=== PATIENT | male | born 1945 | race Caucasian/White ===

== ENCOUNTER 2017-02-07 15:02 | Outpatient (CLI) | payer MEDICARE | END 2017-02-07 15:03 | disposition home or self-care (01) | LOC: CTENTCT 15:02 | PROVIDERS: ATTEND Otolaryngology Plastic Surgery within the Head & Neck | DX: J32.9 Chronic sinusitis, unspecified (principal) | CPT/HCPCS: 70486 ==

== ENCOUNTER 2017-03-02 09:22 | Day surgery (SDC) | payer MEDICARE ==
[2017-03-01 14:31] VITALS: BMI 35.2
[2017-03-02 09:57] LABS: Hemoglobin 14.6 g/dL (14.0-18.0)
[2017-03-02] MEDS ORDERED: Oxymetazoline HCl 0.05% ( 15 ML ) ONE ×2 (10:02→11:43)
[2017-03-02 10:12] LABS: #Eosinphils 0.1 thou/uL (0.0-0.7); #Lymphocytes 1.9 thou/uL (1.20-3.40); #Monocytes 0.8 thou/uL (0.11-0.59); #Neutrophils 3.3 thou/uL (1.40-6.50); %Basophils 0.4 % (0.0-1.0); %Eosinophils 2.2 % (0.0-10.0); %Lymphocytes 31.3 % (21.0-51.0); %Monocytes 12.8 % (0.0-10.0); %Neutrophils 53.3 % (42.0-75.0); Hemoglobin 14.8 g/dL (14.0-18.0); Mean Corpuscular HGB CONC 32.8 g/dL (32.0-36.0); Mean Corpuscular Hemoglobin 31.1 pg (27.0-31.0); Mean Corpuscular Volume 94.9 fl (80.0-94.0); Mean Platelet Volume 7.7 fL (7.4-10.4); Platelet Count 238 thou/uL (130-400); RBC Distribution Width 11.8 % (11.5-14.5); Red Blood Cell (RBC) Count 4.74 mill/uL (4.70-6.10); White Blood Cell (WBC) Count 6.2 thou/uL (4.8-10.8)
[2017-03-02 10:17] LABS: Anion Gap 13 mmol/L (10-20); BUN (Urea Nitrogen) 15 mg/dL (8.4-25.7); Calc. Creatinine Clearance 94 mL/min (70-130); Calcium 9.8 mg/dL (7.8-10.44); Carbon Dioxide 26 mmol/L (23-31); Chloride 105 mmol/L (98-107); Estimated GFR-MDRD 72; Glucose 112 mg/dL (83-110); Potassium 4.2 mmol/L (3.5-5.1); Sodium 140 mmol/L (136-145)
[2017-03-02] MEDS ORDERED: Fentanyl 100 MCG/2 ML VIAL ONE ×3 (11:41→13:29)
[2017-03-02] MEDS ORDERED: Midazolam HCl 2 mg/2 ml Vial ONE (11:41)
[2017-03-02] MEDS ORDERED: Lidocaine 1% w/Epinephrine 1:200K 30 ML VIAL ONE (11:43)
--- NOTE | 2017-03-02 12:40 | EKG ---
Test Reason : PREOP Blood Pressure : / mmHG Vent. Rate : 078 BPM Atrial Rate : 078 BPM P-R Int : 186 ms QRS Dur : 098 ms QT Int : 386 ms P-R-T Axes : 055 024 047 degrees QTc Int : 440 ms Normal sinus rhythm Normal ECG No previous ECGs available Confirmed by DR. Adarsh SPENCE ([id number]) on 03/02/2017 12:40:27 PM Referred By: PAUL Confirmed By:DR. Adarsh SPENCE
[2017-03-02] MEDS ORDERED: Bacitracin Zinc Ointment 30 gm TUBE ONE (12:41)
[2017-03-02] MEDS ORDERED: Ophthalmic Irrigation Solution 15 ML ONE (12:44)
[2017-03-02] MEDS ORDERED: HYDROcodone/Acetaminophen 5/325 mg Tablet ONE (14:29)
[2017-03-02] MEDS ORDERED: Lidocaine 1% PF 5 ML VIAL ONE (16:41)
[2017-03-02] MEDS ORDERED: Propofol 200 MG/20 ML VIAL ONE (16:41)
[2017-03-02] MEDS ORDERED: Dexamethasone 20 MG/5 ML VIAL ONE (16:41)
[2017-03-02] MEDS ORDERED: Ondansetron HCl/PF 4 MG/2 ML Vial ONE (16:41)
[2017-03-02] MEDS ORDERED: Succinylcholine Chloride 20 MG/ML 10 ml SYRINGE FS ONE (16:41)
[2017-03-02] MEDS ORDERED: PHENYLEPHRINE-NS 100 MCG/ML 10 ML SYRINGE ONE (16:41)
--- NOTE | 2017-03-03 10:14 | OP ---
DATE OF SERVICE: 03/02/2017 PREOPERATIVE DIAGNOSES: 1. Chronic rhinosinusitis. 2. Bilateral nasal polyposis. 3. Allergic fungal sinusitis. 4. Bilateral inferior turbinate hypertrophy. POSTOPERATIVE DIAGNOSES: 1. Chronic rhinosinusitis. 2. Bilateral nasal polyposis. 3. Allergic fungal sinusitis. 4. Bilateral inferior turbinate hypertrophy. PROCEDURES: 1. Bilateral endoscopic sinus surgery, total ethmoidectomies. 2. Bilateral endoscopic sinus surgery, maxillary antrostomies. 3. Bilateral endoscopic sinus surgery, frontal sinusotomy. 4. Bilateral endoscopic sinus surgery, sphenoidotomies. 5. Bilateral endoscopic resection of nasal polyposis and nasal polypectomy. 6. Bilateral inferior turbinate, submucosal resection. 7. Intraoperative landmark image-guided setup CT interpretation and cranial base surgery. SURGEON: Jose Naqvi M.D. ESTIMATED BLOOD LOSS: 50 mL. COMPLICATIONS: None. ANESTHESIA: GETA. PROCEDURE IN DETAIL: The patient was taken to the operating room and placed on the table. General e ndotracheal anesthesia was obtained by the Anesthesia staff. The patient was then placed in the beac h chair position, prepped and draped for standard nasal procedure. Following this, the landmark imag e-guided system was then set up, calibrated and was noted to be within 1 mm of accuracy. Following t his, the 0 degree microdebrider was used to advancing the nasal cavity, removing large nasal polyps t hat had the left nasal cavity 100% obstructed. Following this, remnant of the middle turbinate and i nferior turbinates were then visible for landmark structures, 1% lidocaine with 1:100,000 epinephrine was injected into these structures bilaterally. Following this, began on the right side first, the middle turbinate was gently medialized with a [place] elevator. The uncinate process was identified an d was removed using the straight microdebrider and straight [place] forceps. On the left side, the uncinate process was markedly atrophic and widened secondary to extension of the nasal polyps. Nasa l polyps were removed along with the uncinate process using the microdebrider. The maxillary ostia w as identified bilaterally on the right side, was widened using the straight microdebrider on the left side, was widened using the straight microdebrider and the curved microdebrider was used to remove p olyps from the left maxillary sinus ostia. Large amounts of allergic fungal sinusitis debris was katherine ntified in the left maxillary sinus. Following this, the ethmoidal bulla was identified bilaterally and was removed using the microdebrider. Following this, the ground lamella was identified and was p unctured in the posterior ethmoidal cells. Working from posterior to anterior, the ethmoidal cells w ere opened in a mucosal-sparing technique. On the left side, there were copious amounts of nasal brendan yps and allergic fungal mucin throughout the ethmoidal sinuses. Following this, the sphenoid sinuses were approached staying medial to the middle turbinates where the ostia were identified. Using the landmark image guided system, was then punctured with a blunt ended technique into the sphenoid sinus . Sphenoidotomy was widened medially and inferiorly using the microdebrider. The left sphenoid sinu s was completely full of nasal polyps. Following this, a 45-degree scope and the degree image-guided adenoid blade was then used to further open the frontal sinus ostia and remove debris from the front al sinuses. Following this, the inferior turbinates were then punctured on the anterior inferior asp ect with the submucosal microdebrider and submucosal resection was performed bilaterally. Following this, the nasal cavity was irrigated. MeroPacks were placed within the middle meatus bilaterally. O n the left side, Merocel nonabsorbable packs placed to assist with hemostasis. The patient tolerated the procedure well.
== END 2017-03-02 15:28 | disposition home or self-care (01) ==
LOC: SDC 09:22
PROVIDERS: ATTEND Otolaryngology Plastic Surgery within the Head & Neck
PROC: 09TV8ZZ Resection of Left Ethmoid Sinus, Via Natural or Artificial Opening Endoscopic (ICD-10-PCS; principal; 2017-03-02)
PROC: 09TU8ZZ Resection of Right Ethmoid Sinus, Via Natural or Artificial Opening Endoscopic (ICD-10-PCS; 2017-03-02)
PROC: 099R8ZZ Drainage of Left Maxillary Sinus, Via Natural or Artificial Opening Endoscopic (ICD-10-PCS; 2017-03-02)
PROC: 099Q8ZZ Drainage of Right Maxillary Sinus, Via Natural or Artificial Opening Endoscopic (ICD-10-PCS; 2017-03-02)
PROC: 099T8ZZ Drainage of Left Frontal Sinus, Via Natural or Artificial Opening Endoscopic (ICD-10-PCS; 2017-03-02)
PROC: 099S8ZZ Drainage of Right Frontal Sinus, Via Natural or Artificial Opening Endoscopic (ICD-10-PCS; 2017-03-02)
PROC: 099X8ZZ Drainage of Left Sphenoid Sinus, Via Natural or Artificial Opening Endoscopic (ICD-10-PCS; 2017-03-02)
PROC: 099W8ZZ Drainage of Right Sphenoid Sinus, Via Natural or Artificial Opening Endoscopic (ICD-10-PCS; 2017-03-02)
PROC: 09BK8ZX Excision of Nasal Mucosa and Soft Tissue, Via Natural or Artificial Opening Endoscopic, Diagnostic (ICD-10-PCS; 2017-03-02)
PROC: 09BL8ZZ Excision of Nasal Turbinate, Via Natural or Artificial Opening Endoscopic (ICD-10-PCS; 2017-03-02)
DX: J32.9 Chronic sinusitis, unspecified (principal); J33.9 Nasal polyp, unspecified; J32.0 Chronic maxillary sinusitis; J32.2 Chronic ethmoidal sinusitis; J32.1 Chronic frontal sinusitis; J30.89 Other allergic rhinitis; Z88.0 Allergy status to penicillin
CPT/HCPCS: 36415; 80048; 85014; 85018; 88304; 93005; 93010; 96374; J1100; J2001; J2250; J2405; J2704; J3010

== ENCOUNTER 2022-03-12 14:30 | Observation (INO) | payer MEDICARE, OTHER ==
[2022-03-12 15:27] VITALS: BMI 36.8
[2022-03-16] MEDS ORDERED: Bupivacaine/Epinephrine 0.25% 30 ML VIAL ONE (10:42)
[2022-03-16] MEDS ORDERED: Neomycin-Polymyxin 1 ML AMP ONE (10:42)
[2022-03-16 11:29] LABS: SARS-CoV-2 NAA Rapid Test Not Detected (NotDetected)
[2022-03-16] MEDS ORDERED: Midazolam HCl 2 mg/2 ml Vial ONE (11:56)
[2022-03-16] MEDS ORDERED: Fentanyl 100 MCG/2 ML VIAL ONE ×2 (11:56→14:55)
[2022-03-16] MEDS ORDERED: Bupivacaine PF 0.5% 30 ML VIAL ONE (11:57)
[2022-03-16] MEDS ORDERED: Tranexamic Acid 1,000 MG/10 ML VIAL ONE ×2 (12:13→13:27)
[2022-03-16] MEDS ORDERED: Clindamycin/D5W 900 mg/50 ml Premix Bag ONE (12:13)
[2022-03-16] MEDS ORDERED: Fentanyl 250 MCG/5 ML VIAL ONE (12:25)
[2022-03-16] MEDS ORDERED: Ondansetron PF 4 MG/2 ML Vial IM PRN (12:53)
[2022-03-16] MEDS ORDERED: HYDROcodone/Acetaminophen 10/325 mg Tablet PO PRN ×3 (12:53→13:15)
[2022-03-16] MEDS ORDERED: Zolpidem Tartrate 5 MG TAB PO PRN ×2 (12:53→13:15)
[2022-03-16] MEDS ORDERED: Morphine 4 MG/ML VIAL SLOW IVP PRN (12:53)
[2022-03-16] MEDS ORDERED: Cepastat Lozenges 1 LOZ PO PRN (12:53)
[2022-03-16] MEDS ORDERED: Morphine 2 MG/ML VIAL SLOW IVP PRN (12:53)
[2022-03-16] MEDS ORDERED: PHENYLEPHRINE-NS 100 MCG/ML 10 ML SYRINGE ONE (12:54)
[2022-03-16] MEDS ORDERED: Dexamethasone 20 MG/5 ML VIAL ONE (12:54)
[2022-03-16] MEDS ORDERED: Lidocaine 1% PF 5 ML VIAL ONE (12:54)
[2022-03-16] MEDS ORDERED: Ondansetron PF 4 MG/2 ML Vial ONE (12:54)
[2022-03-16] MEDS ORDERED: PROPOFOL 200 MG/20 ML VIAL ONE (12:54)
[2022-03-16] MEDS ORDERED: Tranexamic Acid 1,000 MG in Sodium Chloride 0.9% 100 ML IVPB SCH (13:00)
[2022-03-16] MEDS ORDERED: Ropivacaine 0.2% 550 ML 550 ML NERVE BLCK SCH (13:15)
[2022-03-16] MEDS ORDERED: Fentanyl 100 MCG/2 ML VIAL IV PRN (13:15)
[2022-03-16] MEDS ORDERED: traMADol HCl 50 MG TAB PO PRN (13:15)
[2022-03-16] MEDS ORDERED: Ondansetron PF 4 MG/2 ML Vial IVP PRN (13:15)
[2022-03-16] MEDS ORDERED: Promethazine HCl 25 MG/ML VIAL IM PRN (13:15)
[2022-03-16] MEDS ORDERED: HYDROmorphone 0.5 MG/0.5 ML SYRINGE ONE ×2 (15:19→15:35)
[2022-03-16] MEDS ORDERED: Chloraseptic Spray 180 ml Bottle PO PRN (15:27)
[2022-03-16] MEDS: Sodium Chloride 0.9% 1,000 ML IV SCH ×2 (16:57→23:13)
[2022-03-16] MEDS: Clindamycin/D5W 900 MG in Premix Bag 1 BAG IVPB SCH ×2 (17:23→23:24)
[2022-03-16] MEDS: Ketorolac Tromethamine 30 MG/ML VIAL IVP SCH ×2 (17:23→23:24)
[2022-03-16] MEDS ORDERED: Ketorolac Tromethamine 30 MG/ML VIAL IVP SCH (18:00)
[2022-03-16] MEDS: Aspirin 81 mg Enteric Coated Tablet PO SCH (20:57)
[2022-03-16] MEDS: traMADol HCl 50 MG TAB PO PRN (23:35)
[2022-03-17] MEDS: Ketorolac Tromethamine 30 MG/ML VIAL IVP SCH ×3 (06:08→18:25)
[2022-03-17] MEDS: Aspirin 81 mg Enteric Coated Tablet PO SCH ×2 (08:28→21:31)
[2022-03-17] MEDS: traMADol HCl 50 MG TAB PO PRN ×2 (08:42→15:56)
[2022-03-17] MEDS ORDERED: Fluticasone Propionate Nasal Spray 16 gm Bottle NASAL PRN (09:17)
[2022-03-17] MEDS: Sodium Chloride 0.9% 1,000 ML IV SCH ×2 (10:25→19:00)
[2022-03-17] MEDS ORDERED: Losartan 25 MG TAB PO SCH (10:45)
[2022-03-17] MEDS ORDERED: metFORMIN 500 MG TAB PO SCH (10:45)
[2022-03-17] MEDS: metFORMIN 500 MG TAB PO SCH (18:25)
[2022-03-17] MEDS ORDERED: Atorvastatin Calcium 40 MG TAB PO SCH (21:00)
[2022-03-17] MEDS ORDERED: Amlodipine 10 MG TAB PO SCH (21:00)
[2022-03-18] MEDS: Sodium Chloride 0.9% 1,000 ML IV SCH (05:16)
[2022-03-18] MEDS: Ketorolac Tromethamine 30 MG/ML VIAL IVP SCH ×3 (05:17→12:13)
[2022-03-18 08:10] VITALS: TEMP 97.6
[2022-03-18] MEDS ORDERED: Losartan 25 MG TAB PO SCH (09:00)
[2022-03-18] MEDS ORDERED: Alogliptin 25 MG TAB PO SCH (09:00)
[2022-03-18] MEDS: metFORMIN 500 MG TAB PO SCH (09:01)
[2022-03-18] MEDS: Aspirin 81 mg Enteric Coated Tablet PO SCH (09:01)
[2022-03-18] MEDS: HYDROcodone/Acetaminophen 10/325 mg Tablet PO PRN ×2 (09:02→14:43)
[2022-03-18] MEDS ORDERED: Polyethylene Glycol 3350 17 GM Packet PO SCH (09:45)
[2022-03-18] MEDS ORDERED: Senokot S 8.6-50 MG TAB PO SCH ×4 (09:45→21:00)
[2022-03-18 12:29] VITALS: BP 137/83
[2022-03-19] MEDS ORDERED: Polyethylene Glycol 3350 17 GM Packet PO SCH (09:00)
== END 2022-03-18 15:15 | disposition swing bed (61) ==
LOC: INTOOBSV 03-16 10:32 → SURG A 03-16 10:32 → EDSTATUS 03-16 14:30 → SURG B 03-16 16:34
PROVIDERS: ADMIT Orthopaedic Surgery; ATTEND Orthopaedic Surgery
PROC: 0SRC0J9 Replacement of Right Knee Joint with Synthetic Substitute, Cemented, Open Approach (ICD-10-PCS; principal; 2022-03-16)
DX: M17.0 Bilateral primary osteoarthritis of knee (principal); E11.9 Type 2 diabetes mellitus without complications; I51.9 Heart disease, unspecified; G47.30 Sleep apnea, unspecified; Z79.82 Long term (current) use of aspirin; Z79.84 Long term (current) use of oral hypoglycemic drugs; Z79.899 Other long term (current) drug therapy; Z88.0 Allergy status to penicillin; Z20.822 Contact with and (suspected) exposure to COVID-19
CPT/HCPCS: 27447; 73560; 97110 ×3; 97116 ×3; 97530; 97535; A4306; C1713; C1776; U0002; 96367; 96375; 96376; G0378; J1100; J1170; J1885; J2250; J2405; J2704; J2795; J3010; J3490; S0020

== ENCOUNTER 2023-04-12 09:35 | Outpatient (CLI) | payer MEDICARE, OTHER ==
[2023-04-12 10:55] LABS: Bilirubin Neg (Negative); Blood, Urine Negative (Negative); Glucose, Urine (Dipstick) Normal (Negative); Ketone, Urine Negative (Negative); Leukocyte Negative (Negative); Nitrite Negative (Negative); Protein, Urine (Dipstick) 15 mg/dl (Neg-Trace); Urobilinogen Normal mg/dL (Less than 2)
[2023-04-12 11:00] LABS: Clarity Clear (Clear)
[2023-04-12 11:02] LABS: Bacteria/HPF None Seen HPF (None Seen); RBC/HPF None Seen HPF (0-3); Squamous Epithelial 0-3 HPF (0-3); WBC/HPF None Seen HPF (0-3)
[2023-04-12 11:05] LABS: Hemoglobin 13.9 g/dL (13.5-17.5); Mean Corpuscular HGB CONC 33.1 g/dL (32.0-36.0); Mean Corpuscular Hemoglobin 29.6 pg (27.0-33.0); Mean Corpuscular Volume 89.6 fl (81.2-95.1); Mean Platelet Volume 10.1 fl (7.4-10.4); Platelet Count 223 10x3/uL (150-450); RBC Distribution Width 14.3 % (11.5-14.5); Red Blood Cell (RBC) Count 4.69 10x6/uL (4.32-5.72); White Blood Cell (WBC) Count 6.1 10x3/uL (3.5-10.5)
[2023-04-12 11:18] LABS: Anion Gap 12 mmol/L (10-20); BUN (Urea Nitrogen) 14 mg/dL (8.4-25.7); Calc. Creatinine Clearance 0 mL/min (70-130); Calcium 8.7 mg/dL (7.8-10.44); Carbon Dioxide 27 mmol/L (23-31); Chloride 104 mmol/L (98-107); Estimated GFR 84; Glucose 138 mg/dL (83-110); Potassium 3.6 mmol/L (3.5-5.1); Sodium 139 mmol/L (136-145)
[2023-04-12 11:37] LABS: PTT 28.5 sec (22.0-33.0); Prothrombin Time 10.6 sec (9.5-12.1)
== END 2023-04-12 09:36 | disposition home or self-care (01) ==
LOC: LABBT 09:35
PROVIDERS: ATTEND Urology
DX: Z01.818 Encounter for other preprocedural examination (principal); N40.1 Benign prostatic hyperplasia with lower urinary tract symptoms; N13.8 Other obstructive and reflux uropathy; E66.01 Morbid (severe) obesity due to excess calories; G47.33 Obstructive sleep apnea (adult) (pediatric)
CPT/HCPCS: 80048; 81001; 85027; 85610; 85730; 87086; 93005; 93010

== ENCOUNTER 2023-04-21 10:58 | Day surgery (SDC) | payer MEDICARE, OTHER ==
[2023-04-20 11:25] VITALS: BMI 37.9
[2023-04-21] MEDS ORDERED: LevoFLOXacin D5W 500 mg (100 mL) BAG ONE (13:21)
[2023-04-21] MEDS ORDERED: PROPOFOL 20 ML ONE (14:39)
[2023-04-21] MEDS ORDERED: Rocuronium Bromide 10 MG/ML (10ML VIAL) ONE (14:39)
[2023-04-21] MEDS ORDERED: Lidocaine 1% PF 5 ML VIAL ONE (14:39)
[2023-04-21] MEDS ORDERED: Ondansetron PF 4 MG/2 ML Vial ONE (14:39)
[2023-04-21] MEDS ORDERED: fentaNYL 50 mcg/mL 1 mL Vial ONE (14:44)
[2023-04-21] MEDS ORDERED: SUCCINYLCHOLINE/SOD CL,ISO/PF 200 MG/10 ML SYRINGE FS ONE (14:53)
[2023-04-21] MEDS ORDERED: Dexamethasone 4 mg/ml Vial ONE (15:11)
[2023-04-21] MEDS ORDERED: PHENYLEPHRINE-NS 100 MCG/ML 10 ML SYRINGE ONE (15:22)
[2023-04-21] MEDS ORDERED: SUGAMMADEX SODIUM 200 MG/2 ML VIAL ONE (15:42)
[2023-04-21] MEDS ORDERED: Oxybutynin 5 MG TAB ONE (16:21)
[2023-04-21] MEDS ORDERED: Phenazopyridine HCl 100 MG TAB ONE (16:22)
== END 2023-04-21 18:20 | disposition home or self-care (01) ==
LOC: SDC 10:58
PROVIDERS: ATTEND Urology
PROC: 0V507ZZ Destruction of Prostate, Via Natural or Artificial Opening (ICD-10-PCS; principal; 2023-04-21)
DX: N40.1 Benign prostatic hyperplasia with lower urinary tract symptoms (principal); N13.8 Other obstructive and reflux uropathy; E11.9 Type 2 diabetes mellitus without complications; I10 Essential (primary) hypertension; Z88.0 Allergy status to penicillin
CPT/HCPCS: 52648; J3010; J1100; J1956; J2405; J2704